=== PATIENT | male | born 1980 | race African-American/Black ===

== ENCOUNTER 2017-04-04 08:49 | Emergency (ER) | payer MEDICARE, MEDICAID ==
[~2017-04-04] VITALS: Ht 172.7 cm; Wt 86.4 kg
[2017-04-04 08:59] VITALS: BP 162/94
== END 2017-04-04 11:11 | disposition home or self-care (01) ==
LOC: EMS 08:51
DX: L03.115 Cellulitis of right lower limb (principal); F17.210 Nicotine dependence, cigarettes, uncomplicated; F12.10 Cannabis abuse, uncomplicated; F20.9 Schizophrenia, unspecified
CPT/HCPCS: 99284

== ENCOUNTER 2018-03-02 11:12 | Emergency (ER) | payer MEDICARE, MEDICAID ==
[~2018-03-02] VITALS: Ht 172.7 cm; Wt 90.9 kg
[2018-03-02 11:56] LABS: BASOPHILS % (AUTO) 0.6 % (0.0-2.0); EOSINOPHILS % (AUTO) 0.6 % (1.0-6.0); HEMATOCRIT 43.8 % (41-53); HEMOGLOBIN 15.2 g/dL (13.5-17.5); LYMPHOCYTES # (AUTO) 1.4 K/uL (1.0-4.8); LYMPHOCYTES % (AUTO) 16.7 % (22.0-44.0); MEAN CORPUSCULAR HEMOGLOBIN 33.8 pg (26.0-34.0); MEAN CORPUSCULAR HGB CONC 34.6 G/dL (31.0-37.0); MEAN CORPUSCULAR VOLUME 98 fL (80-100); MONOCYTES # (AUTO) 0.6 K/uL (0.1-1.0); MONOCYTES % (AUTO) 7.5 % (2.0-9.0); NEUTROPHILS # (AUTO) 6.1 K/uL (1.8-7.7); NEUTROPHILS % (AUTO) 74.6 % (40.0-70.0); PLATELET COUNT (AUTO) 228 K/uL (150-450); RED BLOOD CELL COUNT(AUTO) 4.48 MIL/uL (4.50-5.90); RED CELL DISTRIBUTION WIDTH 13.4 % (11.5-14.5)
[2018-03-02 12:08] LABS: ANION GAP 14 mmol/L (8-16); CALCIUM, TOTAL 8.6 mg/dL (8.8-10.5); CARBON DIOXIDE 26 mmol/L (22-29); CHLORIDE 99 mmol/L (98-107); CREATININE 0.68 mg/dL (0.60-1.30); GLOMERULAR FILTR. RATE CALC > 60 mL/min (>60); GLUCOSE,RANDOM 103 mg/dL (70-110); POTASSIUM 3.3 mmol/L (3.5-5.1); SODIUM SERUM 139 mmol/L (136-145); UREA NITROGEN, BLOOD 6 mg/dL (7-18)
[2018-03-02 12:13] LABS: ALANINE AMINOTRANSFERASE 190 U/L (12-78); ALBUMIN 4.1 g/dL (3.4-5.0); ALKALINE PHOSPHATASE 80 U/L (46-116); ASPARTATE AMINOTRANSFERASE 149 U/L (15-37); BILIRUBIN,TOTAL 0.6 mg/dL (0.1-1.0); TOTAL PROTEIN, SERUM 8.4 g/dL (6.4-8.2)
[2018-03-02 13:09] LABS: AMPHET/METH SCREEN,URINE POSITIVE (NEGATIVE); BARBITURATE SCREEN, URINE NEGATIVE (NEGATIVE); BENZODIAZEPINES SCREEN,URINE NEGATIVE (NEGATIVE); CANNABINOID SCREEN,URINE POSITIVE (NEGATIVE); COCAINE SCREEN,URINE NEGATIVE (NEGATIVE); METHADONE SCREEN, URINE NEGATIVE (NEGATIVE); OPIATE SCREEN,URINE NEGATIVE (NEGATIVE)
[2018-03-02 13:11] LABS: PHENCYCLIDINE SCREEN,URINE NEGATIVE (NEGATIVE)
[2018-03-02] MEDS ORDERED: BACITRACIN 0.9 GM PACKET OINTMENT TP ONE (13:30)
[2018-03-02 16:40] VITALS: BP 132/68
== END 2018-03-02 16:44 | disposition home or self-care (01) ==
LOC: EMS 11:14
DX: S82.831A Other fracture of upper and lower end of right fibula, initial encounter for closed fracture (principal); S05.12XA Contusion of eyeball and orbital tissues, left eye, initial encounter; F25.9 Schizoaffective disorder, unspecified; F12.90 Cannabis use, unspecified, uncomplicated; F10.10 Alcohol abuse, uncomplicated; F15.10 Other stimulant abuse, uncomplicated; F17.210 Nicotine dependence, cigarettes, uncomplicated; Z79.899 Other long term (current) drug therapy; W19.XXXA Unspecified fall, initial encounter; Y93.02 Activity, running; Y92.89 Other specified places as the place of occurrence of the external cause; Y99.8 Other external cause status; Y90.4 Blood alcohol level of 80-99 mg/100 ml
CPT/HCPCS: 36415; 73610; 80053; 80307; 85025; 99285; 99406; G0480

== ENCOUNTER 2018-04-11 16:44 | Emergency (ER) | payer MEDICARE, MEDICAID ==
[~2018-04-11] VITALS: Ht 172.7 cm; Wt 90.9 kg
[2018-04-11] MEDS ORDERED: ARIP5TAB8 PO (17:11)
[2018-04-11 19:30] LABS: AMPHET/METH SCREEN,URINE NEGATIVE (NEGATIVE); BARBITURATE SCREEN, URINE NEGATIVE (NEGATIVE); BENZODIAZEPINES SCREEN,URINE NEGATIVE (NEGATIVE); CANNABINOID SCREEN,URINE POSITIVE (NEGATIVE); COCAINE SCREEN,URINE NEGATIVE (NEGATIVE); METHADONE SCREEN, URINE NEGATIVE (NEGATIVE); OPIATE SCREEN,URINE NEGATIVE (NEGATIVE); PHENCYCLIDINE SCREEN,URINE NEGATIVE (NEGATIVE)
[2018-04-11 20:47] VITALS: BP 120/81
== END 2018-04-11 20:55 | disposition home or self-care (01) ==
LOC: EMS 16:45
DX: F10.20 Alcohol dependence, uncomplicated (principal); F12.90 Cannabis use, unspecified, uncomplicated; F20.9 Schizophrenia, unspecified; F17.210 Nicotine dependence, cigarettes, uncomplicated; F15.90 Other stimulant use, unspecified, uncomplicated; Y90.3 Blood alcohol level of 60-79 mg/100 ml
CPT/HCPCS: 36415; 80307; 99283; 99406; G0480

== ENCOUNTER 2018-04-13 10:08 | Emergency (ER) | payer MEDICARE, MEDICAID ==
[~2018-04-13 10:08] MED LIST: ARIP5TAB8 PO
[2018-04-14] MEDS ORDERED: LIB5 PO (13:26)
== END 2018-04-13 10:30 | disposition left against medical advice (07) ==
LOC: EMS 10:11
DX: M25.579 Pain in unspecified ankle and joints of unspecified foot (principal); Z53.21 Procedure and treatment not carried out due to patient leaving prior to being seen by health care provider

== ENCOUNTER 2018-04-13 16:20 | Emergency (ER) | payer MEDICARE, MEDICAID ==
[~2018-04-13] VITALS: Ht 172.7 cm; Wt 90.9 kg
[2018-04-13] MEDS ORDERED: IBUPROFEN 800 MG TABLET PO ONE (18:15)
[2018-04-13 19:57] VITALS: BP 135/69
[2018-04-14] MEDS ORDERED: LIB5 PO (13:26)
== END 2018-04-13 20:12 | disposition home or self-care (01) ==
LOC: EMS 16:23
DX: S82.831D Other fracture of upper and lower end of right fibula, subsequent encounter for closed fracture with routine healing (principal); F17.210 Nicotine dependence, cigarettes, uncomplicated; F12.90 Cannabis use, unspecified, uncomplicated; F15.90 Other stimulant use, unspecified, uncomplicated; X58.XXXD Exposure to other specified factors, subsequent encounter
CPT/HCPCS: 29540

== ENCOUNTER 2018-04-14 09:49 | Emergency (ER) | payer MEDICARE, MEDICAID ==
[2018-04-14] MEDS ORDERED: LIB5 PO (13:26)
== END 2018-04-14 10:29 | disposition left against medical advice (07) ==
LOC: EMS 09:50
DX: M25.579 Pain in unspecified ankle and joints of unspecified foot (principal); Z53.21 Procedure and treatment not carried out due to patient leaving prior to being seen by health care provider

== ENCOUNTER 2018-04-14 13:08 | Emergency (ER) | payer MEDICARE, MEDICAID ==
[~2018-04-14] VITALS: Ht 172.7 cm; Wt 90.9 kg
[2018-04-14] MEDS ORDERED: LIB5 PO (13:26)
[2018-04-14] MEDS ORDERED: IBUPROFEN 600 MG TABLET PO ONE (14:00)
[2018-04-14 14:17] VITALS: BP 135/77
== END 2018-04-14 14:19 | disposition home or self-care (01) ==
LOC: EMS 13:08
DX: M25.571 Pain in right ankle and joints of right foot (principal); F17.210 Nicotine dependence, cigarettes, uncomplicated; F12.90 Cannabis use, unspecified, uncomplicated; F15.90 Other stimulant use, unspecified, uncomplicated; I10 Essential (primary) hypertension; F20.9 Schizophrenia, unspecified; Z79.899 Other long term (current) drug therapy
CPT/HCPCS: 29515; 29540; 99406

== ENCOUNTER 2018-05-07 08:35 | Emergency (ER) | payer MEDICARE, MEDICAID ==
[~2018-05-07] VITALS: Ht 172.7 cm; Wt 90.9 kg
[~2018-05-07 08:35] MED LIST changes: +LIB5 PO
[2018-05-07] MEDS ORDERED: KETOROLAC TROMETHAMINE 10 MG TABLET PO ONE (12:30)
[2018-05-07 12:49] VITALS: BP 149/83
== END 2018-05-07 13:37 | disposition home or self-care (01) ==
LOC: EMS 08:36
DX: K08.89 Other specified disorders of teeth and supporting structures (principal); F17.210 Nicotine dependence, cigarettes, uncomplicated; F12.90 Cannabis use, unspecified, uncomplicated; F19.90 Other psychoactive substance use, unspecified, uncomplicated; F20.9 Schizophrenia, unspecified; I10 Essential (primary) hypertension; Z48.00 Encounter for change or removal of nonsurgical wound dressing

== ENCOUNTER 2018-09-06 12:37 | Emergency (ER) | payer MEDICARE, MEDICAID ==
[~2018-09-06] VITALS: Ht 172.7 cm; Wt 84.1 kg
[2018-09-06 13:41] VITALS: BP 142/84
[2018-09-06] MEDS ORDERED: KETOROLAC TROMETHAMINE 30 MG/ML VIAL IM ONE (13:45)
== END 2018-09-06 14:31 | disposition left against medical advice (07) ==
LOC: EMS 12:37
DX: S99.911A Unspecified injury of right ankle, initial encounter (principal); I10 Essential (primary) hypertension; F20.9 Schizophrenia, unspecified; F12.90 Cannabis use, unspecified, uncomplicated; F15.90 Other stimulant use, unspecified, uncomplicated; F17.210 Nicotine dependence, cigarettes, uncomplicated; W22.8XXA Striking against or struck by other objects, initial encounter; Y93.89 Activity, other specified; Y92.89 Other specified places as the place of occurrence of the external cause; Y99.8 Other external cause status
CPT/HCPCS: 99406

== ENCOUNTER 2018-10-02 06:03 | Emergency (ER) | payer MEDICARE, MEDICAID ==
[~2018-10-02] VITALS: Ht 172.7 cm; Wt 88.6 kg
[2018-10-02 07:53] VITALS: BP 169/99
== END 2018-10-02 07:55 | disposition home or self-care (01) ==
LOC: EMS 06:03
DX: G89.29 Other chronic pain (principal); M25.571 Pain in right ankle and joints of right foot; I10 Essential (primary) hypertension; F20.9 Schizophrenia, unspecified; F12.90 Cannabis use, unspecified, uncomplicated; F15.90 Other stimulant use, unspecified, uncomplicated; F17.210 Nicotine dependence, cigarettes, uncomplicated
CPT/HCPCS: 99406

== ENCOUNTER 2018-11-12 20:54 | Emergency (ER) | payer MEDICARE, MEDICAID ==
[~2018-11-12] VITALS: Ht 172.7 cm; Wt 90.9 kg
[2018-11-12 21:10] VITALS: BP 122/80
[2018-11-12] MEDS ORDERED: PERTUSS(ACELL),DIPH,TET VAC/PF 0.5 ML VIAL IM ONE (21:15)
[2018-11-12 21:27] LABS: BASOPHILS % (AUTO) 0.9 % (0.0-2.0); EOSINOPHILS % (AUTO) 2.8 % (1.0-6.0); HEMATOCRIT 44.6 % (41-53); HEMOGLOBIN 15.1 g/dL (13.5-17.5); LYMPHOCYTES # (AUTO) 2.9 K/uL (1.0-4.8); LYMPHOCYTES % (AUTO) 43.4 % (22.0-44.0); MEAN CORPUSCULAR HEMOGLOBIN 33.3 pg (26.0-34.0); MEAN CORPUSCULAR HGB CONC 33.9 G/dL (31.0-37.0); MEAN CORPUSCULAR VOLUME 98 fL (80-100); MONOCYTES # (AUTO) 0.6 K/uL (0.1-1.0); MONOCYTES % (AUTO) 9.1 % (2.0-9.0); NEUTROPHILS % (AUTO) 43.8 % (40.0-70.0); PLATELET COUNT (AUTO) 306 K/uL (150-450); RED BLOOD CELL COUNT(AUTO) 4.54 MIL/uL (4.50-5.90); RED CELL DISTRIBUTION WIDTH 13.9 % (11.5-14.5)
[2018-11-12 21:39] LABS: ANION GAP 14 mmol/L (8-16); CARBON DIOXIDE 24 mmol/L (22-29); CHLORIDE 103 mmol/L (98-107); CREATININE 0.98 mg/dL (0.60-1.30); GLOMERULAR FILTR. RATE CALC > 60 mL/min (>60); GLUCOSE,RANDOM 108 mg/dL (70-110); POTASSIUM 3.7 mmol/L (3.5-5.1); SODIUM SERUM 141 mmol/L (136-145); UREA NITROGEN, BLOOD 12 mg/dL (7-18)
[2018-11-12 21:44] LABS: ALANINE AMINOTRANSFERASE 57 U/L (12-78); ALBUMIN 4.2 g/dL (3.4-5.0); ALKALINE PHOSPHATASE 82 U/L (46-116); ASPARTATE AMINOTRANSFERASE 50 U/L (15-37); BILIRUBIN,TOTAL 0.5 mg/dL (0.1-1.0); TOTAL PROTEIN, SERUM 8.2 g/dL (6.4-8.2)
== END 2018-11-12 21:15 | disposition left against medical advice (07) ==
LOC: EMS 20:56
DX: S61.412A Laceration without foreign body of left hand, initial encounter (principal); I10 Essential (primary) hypertension; F20.9 Schizophrenia, unspecified; F17.210 Nicotine dependence, cigarettes, uncomplicated; F12.90 Cannabis use, unspecified, uncomplicated; F19.90 Other psychoactive substance use, unspecified, uncomplicated; W25.XXXA Contact with sharp glass, initial encounter; Y93.89 Activity, other specified; Y92.89 Other specified places as the place of occurrence of the external cause; Y99.8 Other external cause status
CPT/HCPCS: 36415; 80053; 85025; 99283; G0480

== ENCOUNTER 2018-12-19 10:37 | Emergency (ER) | payer MEDICARE, MEDICAID ==
[~2018-12-19] VITALS: Ht 175.3 cm; Wt 90.9 kg
[2018-12-19 10:40] VITALS: BP 154/88
[2018-12-19] MEDS ORDERED: ACETAMINOPHEN 500 MG TABLET PO ONE (11:15)
[2018-12-19] MEDS ORDERED: CYCLOBENZAPRINE HCL 10 MG TABLET PO ONE (11:15)
== END 2018-12-19 11:30 | disposition home or self-care (01) ==
LOC: EMS 10:37
DX: K29.70 Gastritis, unspecified, without bleeding (principal); F17.210 Nicotine dependence, cigarettes, uncomplicated; I10 Essential (primary) hypertension; F12.90 Cannabis use, unspecified, uncomplicated; F19.90 Other psychoactive substance use, unspecified, uncomplicated
CPT/HCPCS: 99406

== ENCOUNTER 2019-04-20 10:15 | Emergency (ER) | payer MEDICARE, MEDICAID ==
[~2019-04-20] VITALS: Ht 177.8 cm; Wt 90.9 kg
[2019-04-20 10:20] VITALS: BP 152/78
== END 2019-04-20 11:20 | disposition left against medical advice (07) ==
LOC: EMS 10:17
DX: S92.401A Displaced unspecified fracture of right great toe, initial encounter for closed fracture (principal); S61.411A Laceration without foreign body of right hand, initial encounter; F69 Unspecified disorder of adult personality and behavior; I10 Essential (primary) hypertension; F10.20 Alcohol dependence, uncomplicated; F20.9 Schizophrenia, unspecified; F17.210 Nicotine dependence, cigarettes, uncomplicated; F12.90 Cannabis use, unspecified, uncomplicated; F15.90 Other stimulant use, unspecified, uncomplicated; X58.XXXA Exposure to other specified factors, initial encounter; Y93.89 Activity, other specified; Y92.89 Other specified places as the place of occurrence of the external cause; Y99.8 Other external cause status

== ENCOUNTER 2020-04-05 07:43 | Emergency (ER) | payer MEDICARE, MEDICAID ==
[~2020-04-05] VITALS: Ht 172.7 cm; Wt 55.0 kg
[2020-04-05] MEDS ORDERED: UNKNOWN BP MED PO (07:47)
[2020-04-05 08:26] VITALS: BP 139/79
== END 2020-04-05 08:28 | disposition home or self-care (01) ==
LOC: EMS 07:51
DX: K05.10 Chronic gingivitis, plaque induced (principal); I10 Essential (primary) hypertension; F20.9 Schizophrenia, unspecified; F17.210 Nicotine dependence, cigarettes, uncomplicated; F12.90 Cannabis use, unspecified, uncomplicated; F19.90 Other psychoactive substance use, unspecified, uncomplicated
CPT/HCPCS: 99283; Z7502

== ENCOUNTER 2020-04-23 06:57 | Emergency (ER) | payer MEDICARE, MEDICAID ==
[~2020-04-23] VITALS: Ht 172.7 cm; Wt 95.5 kg
[~2020-04-23 06:57] MED LIST changes: -ARIP5TAB8 PO; -LIB5 PO; +UNKNOWN BP MED PO
[2020-04-23 07:20] VITALS: BP 163/97
== END 2020-04-23 08:35 | disposition left against medical advice (07) ==
LOC: EMS 06:58
DX: M25.562 Pain in left knee (principal); Z53.21 Procedure and treatment not carried out due to patient leaving prior to being seen by health care provider

== ENCOUNTER 2020-06-02 08:00 | Emergency (ER) | payer MEDICARE, MEDICAID ==
[~2020-06-02] VITALS: Ht 172.7 cm; Wt 100.0 kg
[2020-06-02] MEDS ORDERED: AMLO-257 PO (08:06)
[2020-06-02] MEDS ORDERED: AmLODIPine BESYLATE 5 MG TABLET PO ONE (08:45)
[2020-06-02] MEDS ORDERED: CloNIDine HCL 0.1 MG TABLET PO ONE ×2 (09:45→10:30)
[2020-06-02 11:12] VITALS: BP 159/94
== END 2020-06-02 11:26 | disposition home or self-care (01) ==
LOC: EMS 08:00
DX: M25.562 Pain in left knee (principal); G89.29 Other chronic pain; I10 Essential (primary) hypertension; F25.9 Schizoaffective disorder, unspecified; F17.210 Nicotine dependence, cigarettes, uncomplicated; F12.90 Cannabis use, unspecified, uncomplicated; F19.90 Other psychoactive substance use, unspecified, uncomplicated
CPT/HCPCS: 99406; Z7502; Z7610

== ENCOUNTER 2020-08-23 08:18 | Emergency (ER) | payer MEDICARE, MEDICAID ==
[~2020-08-23] VITALS: Ht 172.7 cm; Wt 100.0 kg
[~2020-08-23 08:18] MED LIST changes: +AMLO-257 PO; -UNKNOWN BP MED PO
[2020-08-23] MEDS ORDERED: LITHIUM CARBONATE 450 MG ER TABLET PO ONE (09:00)
[2020-08-23 09:15] VITALS: BP 131/73
== END 2020-08-23 10:18 | disposition home or self-care (01) ==
LOC: EMS 08:25
DX: L02.423 Furuncle of right upper limb (principal); F25.9 Schizoaffective disorder, unspecified
CPT/HCPCS: 10160; 99284; Z7502; Z7610

== ENCOUNTER 2021-03-04 08:43 | Emergency (ER) | payer MEDICARE, MEDICAID ==
[~2021-03-04] VITALS: Ht 182.9 cm; Wt 100.0 kg
[2021-03-04 12:01] VITALS: BP 148/99
== END 2021-03-04 12:19 | disposition left against medical advice (07) ==
LOC: EMS 08:43
DX: S92.511A Displaced fracture of proximal phalanx of right lesser toe(s), initial encounter for closed fracture (principal); I10 Essential (primary) hypertension; F20.9 Schizophrenia, unspecified; F17.210 Nicotine dependence, cigarettes, uncomplicated; F12.90 Cannabis use, unspecified, uncomplicated; F19.90 Other psychoactive substance use, unspecified, uncomplicated; W22.8XXA Striking against or struck by other objects, initial encounter; Y93.89 Activity, other specified; Y92.89 Other specified places as the place of occurrence of the external cause; Y99.8 Other external cause status
CPT/HCPCS: 99283

== ENCOUNTER 2021-10-01 09:57 | Emergency (ER) | payer MEDICARE, MEDICAID ==
[~2021-10-01] VITALS: Ht 172.7 cm; Wt 100.0 kg
[2021-10-01 11:55] VITALS: BP 144/107
[2021-10-01] MEDS ORDERED: SULF-261 PO (13:03)
[2021-10-01] MEDS ORDERED: CEPH-558 PO (13:04)
== END 2021-10-01 13:18 | disposition home or self-care (01) ==
LOC: EMS 09:57
DX: L02.214 Cutaneous abscess of groin (principal); I10 Essential (primary) hypertension; F17.210 Nicotine dependence, cigarettes, uncomplicated; F12.90 Cannabis use, unspecified, uncomplicated; Z79.899 Other long term (current) drug therapy
CPT/HCPCS: 99283; Z7502

== ENCOUNTER 2022-09-30 11:23 | Emergency (ER) | payer MEDICARE, MEDICAID ==
[~2022-09-30] VITALS: Ht 172.7 cm; Wt 94.5 kg
[~2022-09-30 11:23] MED LIST changes: +CEPH-558 PO; +SULF-261 PO
[2022-09-30 11:29] VITALS: BP 164/81
[2022-09-30] MEDS ORDERED: AMLO-258 PO (11:41)
[2022-09-30] MEDS ORDERED: PERTUSS(ACELL),DIPH,TET VAC/PF 0.5 ML SYRINGE IM. ONE (12:00)
== END 2022-09-30 13:13 | disposition home or self-care (01) ==
LOC: EMS 11:28
DX: M79.643 Pain in unspecified hand (principal); I10 Essential (primary) hypertension; F17.210 Nicotine dependence, cigarettes, uncomplicated; F12.90 Cannabis use, unspecified, uncomplicated; F15.90 Other stimulant use, unspecified, uncomplicated; Z88.8 Allergy status to other drugs, medicaments and biological substances
CPT/HCPCS: 90471; 90715; 99283

== ENCOUNTER 2023-06-30 05:35 | Emergency (ER) | payer MEDICARE, MEDICAID ==
[~2023-06-30] VITALS: Ht 172.7 cm; Wt 81.8 kg
[~2023-06-30 05:35] MED LIST changes: -AMLO-257 PO; +AMLO-258 PO; -CEPH-558 PO; -SULF-261 PO
[2023-06-30 05:41] VITALS: BP 137/95; PULSE 110; RESP 16; TEMP 98.9
[2023-06-30] MEDS: KETOROLAC TROMETHAMINE 30 MG/ML VIAL IM ONE (06:56)
[2023-06-30] MEDS: CYCLOBENZAPRINE HCL 10 MG TABLET PO ONE (07:32)
== END 2023-06-30 08:03 | disposition left against medical advice (07) ==
LOC: EMS 05:36
DX: R25.2 Cramp and spasm (principal); I10 Essential (primary) hypertension; F17.210 Nicotine dependence, cigarettes, uncomplicated; F12.90 Cannabis use, unspecified, uncomplicated; F15.90 Other stimulant use, unspecified, uncomplicated; E73.9 Lactose intolerance, unspecified; Y90.9 Presence of alcohol in blood, level not specified
CPT/HCPCS: 99283; 96372; J1885

== ENCOUNTER 2023-07-14 11:09 | Emergency (ER) | payer MEDICARE, MEDICAID ==
[~2023-07-14] VITALS: Ht 172.7 cm; Wt 81.8 kg
[2023-07-14 11:29] VITALS: TEMP 98.4
[2023-07-14 13:28] VITALS: BP 140/91; PULSE 110; RESP 18
[2023-07-14] MEDS: TRIAMCINOLONE ACETONIDE 40 MG/ML VIAL IARTIC ONE (13:54)
[2023-07-14] MEDS: BUPIVACAINE HCL/PF 0.25% 10 ML VIAL IARTIC ONE (13:54)
[2023-07-14] MEDS: LIDOCAINE 1% 10 ML VIAL IARTIC ONE (13:54)
== END 2023-07-14 16:30 | disposition home or self-care (01) ==
LOC: EMS 11:09
DX: M25.561 Pain in right knee (principal); I10 Essential (primary) hypertension; F17.210 Nicotine dependence, cigarettes, uncomplicated; F12.90 Cannabis use, unspecified, uncomplicated; F10.90 Alcohol use, unspecified, uncomplicated; E73.9 Lactose intolerance, unspecified; Y90.9 Presence of alcohol in blood, level not specified
CPT/HCPCS: 99283; 73562; J3490 ×2; J3301